=== PATIENT | female | born 1960 | race Caucasian/White ===

== ENCOUNTER → 2018-04-10 18:22 | Outpatient (CLI) | payer BC | END | disposition home or self-care (01) | LOC: D.MAMMO 03-26 15:30 | DX: Z12.31 Encounter for screening mammogram for malignant neoplasm of breast (principal) ==

== ENCOUNTER 2019-10-27 08:00 | Outpatient (CLI) | payer BC | END 2019-10-27 10:23 | disposition home or self-care (01) | LOC: D.MAMMO 08:00 | PROVIDERS: ATTEND Nurse Practitioner | DX: Z12.31 Encounter for screening mammogram for malignant neoplasm of breast (principal) ==